=== PATIENT | female | born 1970 | race Two or more races ===

== ENCOUNTER → 2017-02-22 | Outpatient (CLI) | payer BC ==
[2015-01-26 03:15] VITALS: BP 132/82
--- NOTE | 2017-02-22 15:15 | RAD ---
DATE: 02/22/2017 EXAM: DIGITAL SCREEN BILAT W/CAD HISTORY: Screening study. COMPARISON: None. This study was interpreted with the benefit of Computerized Aided Detection (CAD). The breast parenchyma shows scattered fibroglandular densities. Breast parenchyma level B. FINDINGS: Digital MLO and CC mammograms of both breasts were obtained. An additional MLO digital mammogram of the left breast was obtained. This is the patient's baseline mammogram. The breast parenchyma is composed of scattered fibroglandular densities which can obscure a lesion on mammography (breast density code B). No spiculated mass is seen. No malignant appearing calcification or area of architectural distortion is noted. IMPRESSION: BI-RADS Category 1, negative. There is no mammographic evidence of malignancy. Routine yearly screening mammography is recommended for follow-up. BI-RADS CATEGORY: 1 NEGATIVE RECOMMENDED FOLLOW-UP: 12M 12 MONTH FOLLOW-UP PQRS compliance statement: Patient information was entered into a reminder system with a target due date 02/22/2018 for the next mammogram. Mammography is a sensitive method for finding small breast cancers, but it does not detect them all and is not a substitute for careful clinical examination. A negative mammogram does not negate a clinically suspicious finding and should not result in delay in biopsying a clinically suspicious abnormality. "Our facility is accredited by the [employer] Mammography [employer]."
== END | disposition home or self-care (01) ==
LOC: MAMMO 11:02
PROVIDERS: ATTEND Family Medicine
DX: Z12.31 Encounter for screening mammogram for malignant neoplasm of breast (principal)
CPT/HCPCS: G0202; 77067

== ENCOUNTER → 2017-10-20 | Outpatient (CLI) | payer BC ==
[2015-01-26 03:15] VITALS: BP 132/82
[~2017-10-20] MED LIST: IOHEXOL 300 MG/ML 75 ML VIAL. IV ONE
--- NOTE | 2017-10-20 14:34 | RAD ---
CT SOFT TISSUE NECK W/CONTRAST Indication: PATIENT STATES DYSPHAGIA SINCE SURGERY IN 2011, PATIENT STATES WORSENING TODAY
75MLS OMNI 300 IV CONTRAST Exposure: One or more of the following individualized dose reduction techniques were utilized for this examination: 1. Automated exposure control 2. Adjustment of the mA and/or kV according to patient size 3. Use of iterative reconstruction technique. Comparison: None are available. Contrast: Intravenous FINDINGS: Visualized sinuses: Clear Visualized orbits: Unremarkable Vessels: Patent were visualized Parotid glands: Unremarkable Submandibular glands: Unremarkable Airway: Patent and midline Tonsils: No appreciable enlargement. Parapharyngeal tissues: Symmetric and unremarkable Lymph nodes: Mildly enlarged cervical lymph nodes bilaterally, slightly more so on the right, largest measures 10 mm short axis. Thyroid: Symmetric Upper thorax: Ill-defined noncalcified nodule in the right upper lobe, image 75, measures 5 mm. Soft tissues: Unremarkable Mandible/maxilla: Unremarkable Cervical spine: Postsurgical changes. Degenerative spondylosis. Exaggerated cervical kyphosis. IMPRESSION: 1. Mild cervical lymph node enlargement is nonspecific. 2. Ill-defined 5 mm right upper lobe noncalcified pulmonary nodule. No clinical follow-up is necessary if low risk, but if high risk consider CT chest follow-up in 12 months, as per Fleischner Society criteria. Electronically signed by: Robin Perez MD (10/20/2017 2:30 PM) [facility]
== END | disposition home or self-care (01) ==
LOC: CT 11:26
PROVIDERS: ATTEND Nurse Practitioner Family
DX: M47.892 Other spondylosis, cervical region (principal); M40.292 Other kyphosis, cervical region; R59.0 Localized enlarged lymph nodes; R91.1 Solitary pulmonary nodule
CPT/HCPCS: 70491; Q9967

== ENCOUNTER 2020-08-10 06:53 | Emergency (ER) | payer BC ==
[~2020-08-10] VITALS: Ht 149.9 cm; Wt 79.0 kg
[2020-08-10 07:13] VITALS: BP 138/83
--- NOTE | 2020-08-10 07:27 | PHYS DOC ---
Past History Past Medical History: Other Past Surgical History: , Other Alcohol Use: None Drug Use: None General Adult EDM: Chief Complaint: HEADACHE HPI: HPI: 49-year-old female presents with headache. The patient has chronic cervical spine problems. She has had intermittent headaches for a few weeks now. She has seen her primary care physician and he prescribed a muscle relaxer hydrocodone. She does have an MRI which is reported to have some sort of findings for which she needs to see a surgeon in 10 days. Her current headache has been going on nonstop for couple of days. Her medications have not helped. She rates it an 8 out of 10. It is a tension type that starts in the occiput and radiates forward. She denies any falls or trauma. Denies fever or chills. Review of Systems: Review of Systems: Constitutional: Denies fever or chills Eyes: Denies change in visual acuity HENT: Denies nasal congestion or sore throat Respiratory: Denies cough or shortness of breath Cardiovascular: Denies chest pain or edema GI: Denies abdominal pain, nausea, vomiting, bloody stools or diarrhea : Denies dysuria Musculoskeletal: Denies back pain or joint pain Integument: Denies rash Neurologic: Headache. Denies focal weakness or sensory changes Endocrine: Denies polyuria or polydipsia Lymphatic: Denies swollen glands Psychiatric: Denies depression or anxiety Allergies: Allergies: Allergies Coded Allergies Type Severity Reaction Last Updated Verified No Known Drug Allergies 01/12/15 No Physical Exam: PE: Constitutional: Well developed, well nourished, no acute distress, non-toxic appearance. [] HENT: Normocephalic, atraumatic, bilateral external ears normal, oropharynx moist, no oral exudates, nose normal. [] Eyes: PERRLA, EOMI, conjunctiva normal, no discharge. [] Neck: Normal range of motion, no tenderness, supple, no stridor. [] Cardiovascular: Heart rate regular rhythm, no murmur [] Lungs & Thorax: Bilateral breath sounds clear to auscultation [] Abdomen: Bowel sounds normal, soft, no tenderness, no masses, no pulsatile masses. [] Skin: Warm, dry, no erythema, no rash. [] Back: No tenderness, no CVA tenderness. [] Extremities: No tenderness, no cyanosis, no clubbing, ROM intact, no edema. [] Neurologic: Alert and oriented X 3, normal motor function, normal sensory function, no focal deficits noted. [] Psychologic: Affect normal, judgement normal, mood anxious. [] EKG: EKG: [] Radiology/Procedures: Radiology/Procedures: [] Heart Score: C/O Chest Pain: N/A Risk Factors: Risk Factors: DM, Current or recent (<one month) smoker, HTN, HLP, family history of CAD, obesity. Risk Scores: Score 0 - 3: 2.5% MACE over next 6 weeks - Discharge Home Score 4 - 6: 20.3% MACE over next 6 weeks - Admit for Clinical Observation Score 7 - 10: 72.7% MACE over next 6 weeks - Early Invasive Strategies Course & Med Decision Making: Course & Med Decision Making Pertinent Labs and Imaging studies reviewed. (See chart for details) The patient's labs are unremarkable. For her headache I have given her 1 L normal saline, 50 mg of Benadryl, 10 mg Reglan, 30 mg of Toradol. She is feeling a lot better at this time. She is stable for discharge. [] Dragon Disclaimer: Dragon Disclaimer: This electronic medical record was generated, in whole or in part, using a voice recognition dictation system. Departure Departure: Impression: Primary Impression: Headache Qualified Codes: R51.9 - Headache, unspecified Disposition: HOME / SELF CARE / HOMELESS Condition: IMPROVED Referrals: MYRNA MCMANUS MD (PCP) Patient Instructions: General Headache Without Cause, [id number] EZIO JACKSON DO Aug 10, 2020 07:27
[2020-08-10] MEDS ORDERED: diphenhydrAMINE 50 MG/ML VIAL IVP ONE (07:30)
[2020-08-10] MEDS ORDERED: IV NORMAL SALINE 1,000ML 1,000 ML IV ONE (07:30)
[2020-08-10] MEDS ORDERED: KETOROLAC 30 MG/ML VIAL. IVP ONE (07:30)
[2020-08-10] MEDS ORDERED: METOCLOPRAMIDE HCL 10 MG/2 ML VIAL. IVP ONE (07:30)
[2020-08-10 08:23] LABS: BASO % 1 % (0-3); EOS # 0.2 x10^3/uL (0.0-0.7); EOS % 2 % (0-3); HEMATOCRIT 36.5 % (36.0-47.0); HEMOGLOBIN 11.9 g/dL (12.0-15.5); LYMPH # 3.3 x10^3/uL (1.0-4.8); LYMPH % 44 % (24-48); MEAN CORPUSCULAR HEMOGLOBIN 28 pg (25-35); MEAN CORPUSCULAR HGB CONC 33 g/dL (31-37); MEAN CORPUSCULAR VOLUME 86 fL (79-100); MONO # 0.5 x10^3/uL (0.0-1.1); MONO % 6 % (0-9); NEUT # 3.5 x10^3uL (1.8-7.7); NEUT % 47 % (31-73); PLATELET COUNT 280 x10^3/uL (140-400); RED BLOOD COUNT 4.24 x10^6/uL (3.50-5.40); RED CELL DISTRIBUTION WIDTH 14.1 % (11.5-14.5); WHITE BLOOD COUNT 7.4 x10^3/uL (4.0-11.0)
[2020-08-10 08:58] LABS: CALCIUM 9.1 mg/dL (8.5-10.1); CREATININE 0.7 mg/dL (0.6-1.0); GFR 88.2; POTASSIUM 4.8 mmol/L (3.5-5.1)
[2020-08-10 09:04] LABS: ALBUMIN 3.4 g/dL (3.4-5.0); ALBUMIN/GLOBULIN RATIO 0.9 (1.0-1.7); TOTAL BILIRUBIN 0.2 mg/dL (0.2-1.0)
== END 2020-08-10 11:54 | disposition home or self-care (01) ==
LOC: ER 06:53
DX: R51.9 Headache, unspecified (principal)
CPT/HCPCS: 36415; 80053; 85025; 96361; 96374; 96375; 99284; J1200; J1885; J2765; J7030

== ENCOUNTER 2020-10-03 14:33 | Emergency (ER) | payer BC ==
[~2020-10-03] VITALS: Ht 149.9 cm; Wt 79.0 kg
--- NOTE | 2020-10-03 15:11 | RAD ---
Single AP view of the chest. Comparison: None. Indication: Covid Findings: Partially identified cervical fusion hardware. The heart is not enlarged. There is no pneumothorax o r effusion. No air space or interstitial disease. Impression: 1. No acute cardiopulmonary process. Electronically signed by: Michele Morris MD (10/03/2020 3:09 PM) [id number]
--- NOTE | 2020-10-03 15:14 | PHYS DOC ---
Past History Past Medical History: Other Additional Past Medical Histor: cervical spine "issues" Past Surgical History: Cervical Fusion Alcohol Use: None Drug Use: None General Adult EDM: Chief Complaint: WEAKNESS/GENERALIZED HPI: HPI: 50-year-old female presents from primary care office after syncopal episode. The patient went to the office because she has had 3 days of body aches, headache, fatigue and decreased appetite. The patient was concerned the symptoms were COVID-19. While she was getting a chest x-ray at the office, she passed out and fell on the floor. She lacerated the back of her head. This was repaired in the PCPs office. He sent her here for further evaluation as a precaution. Patient denies nausea or vomiting. She does not have a significant headache at this time. Review of Systems: Review of Systems: Constitutional: Denies fever or chills. Body aches, fatigue. Eyes: Denies change in visual acuity HENT: Nasal congestion Respiratory: Denies cough or shortness of breath Cardiovascular: Denies chest pain or edema GI: Denies abdominal pain, nausea, vomiting, bloody stools or diarrhea : Denies dysuria Musculoskeletal: Denies back pain or joint pain Integument: Laceration occiput Neurologic: Syncope. Denies headache, focal weakness or sensory changes Endocrine: Denies polyuria or polydipsia Lymphatic: Denies swollen glands Psychiatric: Denies depression or anxiety Allergies: Allergies: Allergies Coded Allergies Type Severity Reaction Last Updated Verified No Known Drug Allergies 01/12/15 No Physical Exam: PE: Constitutional: Well developed, well nourished, no acute distress, non-toxic appearance. [] HENT: Normocephalic, atraumatic, bilateral external ears normal, oropharynx moist, no oral exudates, nose normal. [] Eyes: PERRLA, EOMI, conjunctiva normal, no discharge. [] Neck: Normal range of motion, no tenderness, supple, no stridor. [] Cardiovascular: Heart rate regular rhythm, no murmur [] Lungs & Thorax: Bilateral breath sounds clear to auscultation [] Abdomen: Bowel sounds normal, soft, no tenderness, no masses, no pulsatile masses. [] Skin: 2 cm sutured laceration of the occipital scalp, bleeding controlled. [] Back: No tenderness, no CVA tenderness. [] Extremities: No tenderness, no cyanosis, no clubbing, ROM intact, no edema. [] Neurologic: Alert and oriented X 3, normal motor function, normal sensory function, no focal deficits noted. [] Psychologic: Affect normal, judgement normal, mood normal. [] Current Patient Data: Vital Signs: Vital Signs Date Time Temp Pulse Resp B/P (MAP) Pulse Ox O2 Delivery O2 Flow Rate FiO2 10/03/20 14:52 98.6 98 16 134/71 94 Room Air EKG: EKG: [] Radiology/Procedures: Radiology/Procedures: [] Impressions: CT head without contrast PQRS statement: CT scans at this facility use dose reduction including either automated exposure control, iterative reconstructions, and /or weight based radiation dosing via mA and kV modification when appropriate to reduce radiation dose to as low as reasonably achievable. HISTORY: Fall, hit head, scalp laceration. FINDINGS: No intracranial hemorrhage, mass, hydrocephalus, extra-axial fluid collections or infarction. There is streak artifact from postoperative changes of suboccipital craniectomy and craniocervical metallic fusion hardware decreasing sensitivity to detect pathology at the posterior cranial fossa. 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 There is a catheter type density projecting along the posterior upper cervical spinal canal to the craniocervical junction extending outside the [id number]. Orbits and mastoids are unremarkable. IMPRESSION: No acute abnormality. Postoperative changes as described above. Electronically signed by: Terry Driver MD (10/03/2020 3:32 PM) [facility] [place] AND SIGNED BY: TERRY DRIVER MD DATE: 10/03/20 1528 CC: EZIO JACKSON DO; MYRNA MCMANUS MD ~MTH0 0 Single AP view of the chest. Comparison: None. Indication: Covid Findings: Partially identified cervical fusion hardware. The heart is not enlarged. There is no pneumothorax or effusion. No air space or interstitial disease. Impression: 1. No acute cardiopulmonary process. Electronically signed by: Michele Morris MD (10/03/2020 3:09 PM) [id number] DICTATED AND SIGNED BY: MICHELE MORRIS MD DATE: 10/03/20 1508 CC: EZIO JACKSON DO; MYRNA MCMANUS MD ~MTH0 0 Heart Score: C/O Chest Pain: No Risk Factors: Risk Factors: DM, Current or recent (<one month) smoker, HTN, HLP, family history of CAD, obesity. Risk Scores: Score 0 - 3: 2.5% MACE over next 6 weeks - Discharge Home Score 4 - 6: 20.3% MACE over next 6 weeks - Admit for Clinical Observation Score 7 - 10: 72.7% MACE over next 6 weeks - Early Invasive Strategies Course & Med Decision Making: Course & Med Decision Making Pertinent Labs and Imaging studies reviewed. (See chart for details) The patient's head CT is negative. Her chest x-ray is negative for acute findings. The patient's labs are unremarkable. EKG is unremarkable. Troponin is negative. Patient's oxygen saturation has been 96% on room air. This is the likely COVID-19. I am not certain why she passed out as she seems to be getting adequate oxygen. She is stable for discharge at this time. [] Dragon Disclaimer: Dragon Disclaimer: This electronic medical record was generated, in whole or in part, using a voice recognition dictation system. Departure Departure: Impression: Primary Impression: COVID-19 Additional Impression: Syncope and collapse Disposition: HOME / SELF CARE / HOMELESS Condition: STABLE Referrals: MYRNA MCMANUS MD (PCP) Additional Instructions: You have been tested for or diagnosed with COVID-19. It is an infection caused by a new type of coronavirus. COVID-19 will cause cold-like or mild flu symptoms in most. It can cause more severe symptoms like problems breathing in some. There is no treatment for COVID-19. The body will clear the infection over time. Self-care will help to ease discomfort. Steps to Take: Self-Care Rest as needed. Healthy habits may help you feel better. Steps include: Choose healthy foods including fruits and vegetables. Drink water throughout the day. Get plenty of sleep each night. If you smoke, try to quit. It may ease breathing. Avoid alcohol. Keep Others Healthy The virus can spread to others. Droplets are released every time you sneeze or cough. The droplets can get into the mouth, nose, or eyes of people near you and lead to infection. To lower the chances of spreading COVID-19 to others: Stay at home until your doctor has said it is safe to leave. If you tested positive this will mean staying isolated until both of the following are true: At least 7 days have passed since the start of illness. You are free of fever for at least 72 hours without the use of medicine. During this time: - Avoid public areas, events, or transportation. Do not return to work or school until your doctor has said it is safe to do so. - Call ahead if you need to go to a medical center. Let them know you may have COVID-19. It will help them guide you where to go. They may also ask you to wear a facemask when you come to the office. - If you call for emergency medical services, let them know you may have COVID- 19. While at home: - Try to avoid close contact with others. Stay about 6 feet away. - If possible, spend most of your time in a separate room from others. - Use a face mask if you will be in close contact with others such as sharing a room or vehicle. - Have someone wipe down common surfaces in the home. Use household flakeboard line tender every day on areas like doorknobs, counters, or sinks. - Cough or sneeze into a tissue. Throw the tissue away right after use. If a tissue is not available, cough or sneeze into your elbow. - Wash your hands often. Wash them after sneezing or coughing. Use soap and water and wash for at least 20 seconds. Alcohol based hand cleaner signs can be used if soap and water is not available. - Do not prepare food for others. Avoid sharing personal items like forks, spoons, or toothbrushes. - Avoid close contact with pets while you are sick. There is no evidence of the virus passing to pets. This is a safety step until more is known about this virus. Isolation can be frustrating. Social interaction can help. Keep in touch with friends and family through phone and tech options. You can still interact with others in your home, just keep a safe distance of about 6 feet. Follow-up: Your doctors office will check in with you to see if there are any changes in your health. You may be asked to keep track of symptoms to share with them. They will also let you know when you are clear to be in public again. Problems to Look Out For: Contact your doctor if your recovery is not going as you expect. Get emergency care if you have problems such as: - Trouble breathing - Nonstop chest pain or pressure - Changes in awareness, confusion, or problems waking - Lips or face have bluish color - Worsening of symptoms If you think you have an emergency, call for emergency medical services right away. As taken from [facility] EZIO JACKSON DO Oct 03, 2020 15:14
--- NOTE | 2020-10-03 15:34 | RAD ---
CT head without contrast PQRS statement: CT scans at this facility use dose reduction including either automated exposure cont rol, iterative reconstructions, and /or weight based radiation dosing via mA and kV modification when appropriate to reduce radiation dose to as low as reasonably achievable. HISTORY: Fall, hit head, scalp laceration. FINDINGS: No intracranial hemorrhage, mass, hydrocephalus, extra-axial fluid collections or infarctio n. There is streak artifact from postoperative changes of suboccipital craniectomy and craniocervical metallic fusion hardware decreasing sensitivity to detect pathology at the posterior cranial fossa. 1 cm linear oblong ossification of the falx cerebri at the vertex likely a small ossified meningioma. There is a catheter type density projecting along the posterior upper cervical spinal canal to the c raniocervical junction extending outside the [id number]. Orbits and mastoids are unremarkable. IMPRESSION: No acute abnormality. Postoperative changes as described above. Electronically signed by: Roberto Driver MD (10/03/2020 3:32 PM) [facility]
[2020-10-03 15:35] LABS: BASO % 0 % (0-3); EOS % 0 % (0-3); HEMATOCRIT 43.3 % (36.0-47.0); HEMOGLOBIN 14.3 g/dL (12.0-15.5); LYMPH # 0.7 x10^3/uL (1.0-4.8); LYMPH % 11 % (24-48); MEAN CORPUSCULAR HEMOGLOBIN 29 pg (25-35); MEAN CORPUSCULAR HGB CONC 33 g/dL (31-37); MEAN CORPUSCULAR VOLUME 86 fL (79-100); MONO # 0.7 x10^3/uL (0.0-1.1); MONO % 11 % (0-9); NEUT # 4.9 x10^3uL (1.8-7.7); NEUT % 78 % (31-73); PLATELET COUNT 245 x10^3/uL (140-400); RED BLOOD COUNT 5.01 x10^6/uL (3.50-5.40); RED CELL DISTRIBUTION WIDTH 13.7 % (11.5-14.5); WHITE BLOOD COUNT 6.3 x10^3/uL (4.0-11.0)
[2020-10-03 15:39] LABS: CALCIUM 8.8 mg/dL (8.5-10.1); CREATININE 0.9 mg/dL (0.6-1.0); GFR 65.8; POTASSIUM 4.2 mmol/L (3.5-5.1)
[2020-10-03 15:45] LABS: ALBUMIN 3.7 g/dL (3.4-5.0); ALBUMIN/GLOBULIN RATIO 0.8 (1.0-1.7); TOTAL BILIRUBIN 0.4 mg/dL (0.2-1.0); TOTAL PROTEIN 8.2 g/dL (6.4-8.2)
--- NOTE | 2020-10-03 16:23 | EKG ---
[address] [address] Test Date: 2020-10-03 Test Time: 15:06:26 Pat Name: MELINA JEAN BAPTISTE Department: Room: Gender: F Manager Of Transportation: JACKIE : 1970 Requested By: EZIO JACKSON Order Number: [id number] Reading MD: Measurements Intervals [place] Rate: 92 P: 75 MS: 136 QRS: 1 QRSD: 76 T: 34 QT: 408 QTc: 510 Interpretive Statements SINUS RHYTHM PROLONGED QT NO SPECIFIC ECG ABNORMALITIES RI6.02 No previous ECG available for comparison
[2020-10-03 16:35] VITALS: BP 132/70
--- NOTE | 2020-10-04 16:23 | NUR ---
IP: Attempted to contact pt concerning covid results. No answer, left a voicemail to returnt he call.
== END 2020-10-03 16:46 | disposition home or self-care (01) ==
LOC: ER 14:33
DX: U07.1 COVID-19 (principal); R55 Syncope and collapse
CPT/HCPCS: 36415; 70450; 71045; 80053; 84484; 85025; 93005; 99285; U0005